=== PATIENT | female | born 1985 | race Caucasian/White ===

== ENCOUNTER 2016-12-09 16:57 | Emergency (ER) | payer MEDICAID, OTHER ==
[2016-12-09 19:46] LABS: APPEARANCE,URINE CLEAR; BILIRUBIN,URINE NEGATIVE (NEGATIVE); GLUCOSE, URINE NEGATIVE (NEGATIVE); KETONES,URINE TRACE mg/dL (NEGATIVE); LEUKOCYTE ESTERASE,URINE NEGATIVE (NEGATIVE); NITRITE,URINE NEGATIVE (NEGATIVE); PROTEIN,URINE NEGATIVE (NEGATIVE); URINE SPECIFIC GRAVITY 1.011; UROBILINOGEN,URINE NEGATIVE mg/dL (<2.0)
[2016-12-09] MEDS ORDERED: CEFTRIAXONE INJ 250 MG VIAL IM ONE (21:23)
[2016-12-09] MEDS ORDERED: AZITHROMYCIN 1 GM SUSP PACKET PO ONE (21:23)
[2016-12-09] MEDS ORDERED: LEVONORGESTREL 1.5 MG TABLET (1 TAB/ER-USE) PO ONE (21:24)
[2016-12-09] MEDS ORDERED: PROMETHAZINE HCL 25 MG TABLET PO ONE (21:24)
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
[2016-12-09] MEDS ORDERED: LIDOCAINE 1% INJ-PF (10 MG/ML) 30 ML SDV ONE (21:49)
[2016-12-09 22:03] LABS: ADD HIVPANEL? NO; HIV (1 AND 2) ANTIBODY NEGATIVE (NEGATIVE)
[2016-12-09 22:04] VITALS: BP 110/70
[2016-12-10 00:08] LABS: CHLAM PCR NOT DETECTED (NOT DETECT)
== END 2016-12-09 22:02 | disposition home or self-care (01) ==
LOC: ER 16:57
DX: T76.21XA Adult sexual abuse, suspected, initial encounter (principal); R10.2 Pelvic and perineal pain; Z32.01 Encounter for pregnancy test, result positive; F17.200 Nicotine dependence, unspecified, uncomplicated; F41.9 Anxiety disorder, unspecified; Z88.0 Allergy status to penicillin
CPT/HCPCS: 99285; 96372; 36415; 87210; 81025; 81001; 86701; 87491; 87591; 80074; Q0144; J0696

== ENCOUNTER 2017-05-23 14:23 | Emergency (ER) | payer MEDICAID ==
[2017-05-23 14:35] VITALS: BP 112/67
[2017-05-23] MEDS ORDERED: LIDOCAINE 1% INJ-PF (10 MG/ML) 30 ML SDV INJ ONE (14:48)
--- NOTE | 2017-05-23 14:50 | ER Document Report ---
HPI - HPI Pain Level: 4 Notes: Patient is a 32-year-old female presented to the ED complaining of an abscess to her left wrist 3 days. 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 Patient was seen in urgent care on Tuesday and received Bactrim DS without incision and drainage. Patient states that she is 27 weeks . Patient admits to smoking but denies any other drug use. Patient is allergic to penicillins-- rash. Patient takes gabapentin Zoloft and Latuda daily. No other significant past medical history. Her PCM is Dr. Benton. The pain does not radiate. Denies any fever, headache, URI, sore throat, chest pain, palpitations, syncope , cough, wheeze, shortness of breath, abdominal pain, nausea/vomiting/diarrhea, dysuria. Denies any recent illness, travel, sick contacts. - ROS Notes: REVIEW OF SYSTEMS: CONSTITUTIONAL : Denies fever, chills, or sweats. Denies recent illness. EENT: Denies eye, ear, throat, or mouth pain or symptoms. Denies nasal or sinus congestion or discharge. Denies throat, tongue, or mouth swelling or difficulty swallowing. CARDIOVASCULAR: Denies chest pain. Denies palpitations or racing or irregular heart beat. Denies ankle edema. RESPIRATORY: Denies cough, cold, or chest congestion. Denies shortness of breath, difficulty breathing, or wheezing. GASTROINTESTINAL: Denies abdominal pain or distention. Denies nausea, vomiting , or diarrhea. Denies blood in vomitus, stools, or per rectum. Denies black, tarry stools. Denies constipation. GENITOURINARY: Denies difficulty urinating, painful urination, burning, frequency, blood in urine, or discharge. MUSCULOSKELETAL: see hpi SKIN: see hpi NEUROLOGICAL: Denies confusion or altered mental status. Denies passing out or loss of consciousness. Denies dizziness or lightheadedness. Denies headache. Denies weakness or paralysis or loss of use of either side. Denies problems with gait or speech. Denies sensory loss, numbness, or tingling. Denies seizures. PSYCHIATRIC: Denies anxiety or stress. Denies depression, suicidal ideation, or homicidal ideation. ALL OTHER SYSTEMS REVIEWED AND NEGATIVE. Dictation was performed using [employer] voice recognition software - REPRODUCTIVE Reproductive: DENIES: : - DERM Skin Color: Normal Past Medical History - Social History Smoking Status: Current Every Day Smoker Family History: Reviewed & Not Pertinent Patient has suicidal ideation: No Patient has homicidal ideation: No Pulmonary Medical History: Reports: Hx Bronchitis Renal/ Medical History: Denies: Hx Peritoneal Dialysis Psychiatric Medical History: Reports: Hx Anxiety - Immunizations Hx Diphtheria, Pertussis, Tetanus Vaccination: No Vertical Provider Document - CONSTITUTIONAL Agree With Documented VS: Yes Notes: PHYSICAL EXAMINATION: GENERAL: Well-appearing, well-nourished and in no acute distress. LUNGS: Breath sounds clear to auscultation bilaterally and equal. No wheezes rales or rhonchi. HEART: Regular rate and rhythm without murmurs, rubs, gallops. Musculoskeletal: Lt wrist: FROM to passive/active. Strength 5+/5. Radial pulse 2+. No bony tenderness. sensation intact distal. Extremities: No cyanosis, clubbing, or edema b/l. Peripheral pulses 2+. Capillary refill less than 3 seconds. NEUROLOGICAL: Normal sensory, motor exams PSYCH: Normal mood, normal affect. SKIN: Erythema/abscess noted to left lateral wrist approx 2.5cm with fluid pocket. Minimal induration surrounding. No discharge. No streaking. - INFECTION CONTROL TRAVEL OUTSIDE OF THE [place] IN LAST 30 DAYS: No - RESPIRATORY O2 Sat by Pulse Oximetry: 100 Course - Re-evaluation Re-evalutation: 05/23/17 15:35 Patient is an afebrile, well-hydrated, 32-year-old female presents the ED with a left wrist abscess, suspect MRSA based on patient's H&P vitals are stable. PE otherwise unremarkable. Patient is neurovascularly intact distal. Incision and drainage performed a left lateral wrist successfully with packing without complication. Patient is already on Bactrim DS twice a day which is a Preg Cat D*. We will stop this immediately. Risks/benefits reviewed with the patient. Called the pharmacy who gave some suggestions regarding vancomycin, Linezolid. Called [facility] OPERATOR Dr. Bowman to get a recommendation. She recommends clindamycin PO (no preg cat during look up on utd), and she states that they use this for infections in women without concern. We will place her on 300mg QID x10 days. Conservative measures otherwise for symptoms. Wound instructions reviewed. Recheck with your PCM in 2-3 days. Return to the ED with any worsening/concerning symptoms otherwise as reviewed in discharge. Patient is in agreement. - Vital Signs Vital signs: Temp Pulse Resp BP Pulse Ox 98.5 F 97 16 112/67 100 05/23/17 14:33 05/23/17 14:33 05/23/17 14:33 05/23/17 14:33 05/23/17 14:33 Procedures - Incision and Drainage Left Wrist Time completed: 15:15 Type: Simple Anesthetic type: 1% Lidocaine mL's of anesthetic: 6 Blade size: 11 I&D procedure: Shurclens applied, Iodoform packing placed, Sterile dressing applied Incision Method: Incision made by scalpel Amount/type of drainage: Purulent/bloody 6cc Discharge - Discharge Clinical Impression: Abscess Condition: Stable Disposition: HOME, SELF-CARE Instructions: Abscess ([facility]), MRSA Cellulitis ([facility]), Post Incision and Drainage , Clindamycin ([facility]) Additional Instructions: Do not shower or bathe for 24 hours. After 24 hours she may shower but no submersion of the wound under water. Keep the original dressing on the wound for 24 hours unless the drainage stops through. Change the dressing daily thereafter and use a small amount of triple antibiotic ointment over the open wound. Return to the ED and/or your PCM in 2-3 days for recheck and continue direction for wound packing. Monitor for any signs of worsening pain or redness , red streaks, and/or fever. Return to the ED if noticing any of the above symptoms or as needed for any other concerning symptoms. Take medications as directed. Prescriptions: Clindamycin HCl [Cleocin 300 mg Capsule] 300 mg PO QID #40 capsule Forms: Smoking Cessation Education Referrals: KORTNEY CASTANEDA MD [ACTIVE STAFF] - Follow up as needed [facility] [Provider Group] - Follow up in 3-5 days
== END 2017-05-23 15:55 | disposition home or self-care (01) ==
LOC: ER 14:23
PROC: 0H9EXZZ Drainage of Left Lower Arm Skin, External Approach (ICD-10-PCS; principal; 2017-05-23)
DX: O26.92 Pregnancy related conditions, unspecified, second trimester (principal); L02.414 Cutaneous abscess of left upper limb; O99.332 Smoking (tobacco) complicating pregnancy, second trimester; Z3A.27 27 weeks gestation of pregnancy
CPT/HCPCS: 99283; 87070; 87205; 87077; 10060; J3490; 87075; A6266

== ENCOUNTER 2017-06-27 10:15 | Outpatient (CLI) | payer MEDICAID ==
[2017-06-27 12:23] LABS: APPEARANCE,URINE CLEAR; BILIRUBIN,URINE NEGATIVE (NEGATIVE); GLUCOSE, URINE NEGATIVE (NEGATIVE); KETONES,URINE NEGATIVE (NEGATIVE); LEUKOCYTE ESTERASE,URINE NEGATIVE (NEGATIVE); NITRITE,URINE NEGATIVE (NEGATIVE); PROTEIN,URINE NEGATIVE (NEGATIVE); URINE SPECIFIC GRAVITY 1.004; UROBILINOGEN,URINE NEGATIVE mg/dL (<2.0)
[2017-06-27 12:54] LABS: URINE BARBITURATES SCREEN NEGATIVE; URINE METHADONE SCREEN NEGATIVE; URINE PHENCYCLIDINE SCREEN NEGATIVE
[2017-06-27 13:03] LABS: URINE OPIATES LOW UNCONFIRMED POSITIVE
--- NOTE | 2017-06-27 13:26 | RADIOLOGY REPORT (SQ) ---
EXAM DESCRIPTION: U/S PROFILE W/O STRESS COMPLETED DATE/TIME: 06/27/2017 1:02 pm REASON FOR STUDY: Nonreactive NST COMPARISON: None. TECHNIQUE: Limited hussein-scale realtime and static images of the fetus to measure specified parameter s. LIMITATIONS: None. FINDINGS: HEART RATE: 126 beats per minute. MARIANN: 9.5 cm. POSTURE AND TONE: 2 points. MOVEMENT: 0 points. BREATHING MOVEMENT: 2 points. QUALITATIVE MARIANN: 2 points. OTHER: No other significant finding. IMPRESSION: BIOPHYSICAL PROFILE: 04/14. No breathing movement was identified Trimester of : Third - 28 weeks to delivery COMMENT: BREATHING MOVEMENTS: 2 POINTS: PRESENT 0 POINTS: ABSENT MOTION: 2 POINTS: PRESENT 0 POINTS: ABSENT TONE: 2 POINTS: PRESENT 0 POINTS: ABSENT AMNIOTIC FLUID VOLUME: 2 POINTS: LARGEST POCKET GREATER THAN 2 CM DEPTH. 0 POINTS: NO POCKET OF 2 CM. TECHNICAL DOCUMENTATION: JOB ID: [id number] [facility]- All Rights Reserved
--- NOTE | 2017-06-27 14:58 | Non Stress Test Report ---
Non Stress Test Datetime Report Generated by CPN: 06/27/2017 14:58 DEMOGRAPHIC Test Number: 1 EGA NST: 34.6 INDICATION Indication for Study: Ordered by Provider MONITORING Monitor Explained: Monitor Explained; Test Explained; Patient Verbalized Understanding Time on Monitor: 06/27/2017 10:33 Time off Monitor: 06/27/2017 14:05 NST Duration: 212 NST INTERVENTIONS NST Interventions: PO Hydration; IV Fluids; Reposition Patient; For Biophysical Profile NST Interventions Other: Popsicle Physician Notified NST: Morillo BABY A: [id number] BABY A Movement : Present Contraction Frequency : 0 FHR Baseline : 120 Accelerations : 10X10 Decelerations : None Variability : Moderate 6-25bpm NST Review: Meets Criteria for Reactive NST NST Review and Verified By : Boris Gracia RN NST Results: Non-Reactive NST COMMENTS NST Comments: Pt went for BPP, 6/8 results. Will repeat within [address] Morillo. NST REPORT Report Trigger: Send Report
[2017-07-07 14:54] LABS: BENZODIAZEPINE CONFIRMATION UR Negative (Cutoff=300)
[2017-07-07 15:01] LABS: OPIATE CONFIRMATION Positive (.)
== END 2017-06-27 15:01 | disposition home or self-care (01) ==
LOC: LC 10:15
PROVIDERS: ATTEND Obstetrics & Gynecology
PROC: 4A1HXCZ Monitoring of Products of Conception, Cardiac Rate, External Approach (ICD-10-PCS; principal; 2017-06-27)
DX: Z34.93 Encounter for supervision of normal pregnancy, unspecified, third trimester (principal); Z36 Encounter for antenatal screening of mother; Z3A.34 34 weeks gestation of pregnancy
CPT/HCPCS: 59025; 81001; 80307; 76819; G0480 ×2; G6056; 80361

== ENCOUNTER 2017-06-28 10:33 | Emergency (ER) | payer MEDICAID ==
[2017-06-28 10:51] VITALS: BP 113/70
[2017-06-28] MEDS ORDERED: CLINDAMYCIN PHOSPHATE INJ 300 MG/2 ML SDV IM ONE (11:11)
--- NOTE | 2017-06-28 12:12 | ER Document Report ---
HPI - HPI Patient complains to provider of: Right hand abscess Onset: Other - 5 days Onset/Duration: Persistent Quality of pain: Achy Pain Level: 4 Context: Patient presents complaining of right hand abscess for the past 5 days. Patient has been treating the lesion with warm compresses. Patient does admit to a history of IV drug use used drugs in a few weeks. Patient without any fever. Patient does have a history of MRSA. Patient is also currently Associated Symptoms: Other - Right hand abscess Exacerbated by: Movement Relieved by: Denies Similar symptoms previously: Yes Recently seen / treated by doctor: Yes - ROS ROS below otherwise negative: Yes Systems Reviewed and Negative: Yes All other systems reviewed and negative - CONSTITUTIONAL Constitutional: DENIES: Fever - REPRODUCTIVE Reproductive: DENIES: : - MUSCULOSKELETAL Musculoskeletal: REPORTS: Extremity pain, Swelling - DERM Skin Color: Erythema Notes: Abscess Past Medical History - General Information source: Patient - Social History Smoking Status: Current Some Day Smoker Chew tobacco use (# tins/day): No Frequency of alcohol use: None Drug Abuse: Other - IV heroin Lives with: Family Family History: Reviewed & Not Pertinent Patient has suicidal ideation: No Patient has homicidal ideation: No Pulmonary Medical History: Reports: Hx Bronchitis Renal/ Medical History: Denies: Hx Peritoneal Dialysis Psychiatric Medical History: Reports: Hx Anxiety, Hx Bipolar Disorder, Hx Depression Surgical Hx: Negative - Immunizations Hx Diphtheria, Pertussis, Tetanus Vaccination: No Vertical Provider Document - CONSTITUTIONAL Agree With Documented VS: Yes Exam Limitations: No Limitations General Appearance: WD/WN, No Apparent Distress - INFECTION CONTROL TRAVEL OUTSIDE OF THE [place] IN LAST 30 DAYS: No - HEENT HEENT: Atraumatic, Normocephalic - NECK Neck: Normal Inspection - RESPIRATORY Respiratory: Breath Sounds Normal, No Respiratory Distress O2 Sat by Pulse Oximetry: 96 - CARDIOVASCULAR Cardiovascular: Regular Rate, Regular Rhythm Pulses: Normal: Radial - BACK Back: Normal Inspection - MUSCULOSKELETAL/EXTREMETIES Musculoskeletal/Extremeties: MAEW, Tender - Right hand tenderness, Edema - 1+ swelling to dorsal aspect of right hand - NEURO Level of Consciousness: Awake, Alert, Appropriate Motor/Sensory: No Motor Deficit - DERM Integumentary: Warm, Abscess - Abscess to dorsal aspect over right hand with small amount of overlying erythema, no concern for flexor tenosynovitis Course - Vital Signs Vital signs: Temp Pulse Resp BP Pulse Ox 98.9 F 85 113/70 96 06/28/17 10:48 06/28/17 10:48 06/28/17 10:48 06/28/17 10:48 Procedures - Incision and Drainage Right Hand Type: Simple Anesthetic type: 1% Lidocaine Blade size: 11 I&D procedure: Betadine prep applied Incision Method: Incision made by scalpel Amount/type of drainage: Moderate amount of purulent drainage removed Hands back picture: 1 - Abscess to dorsal aspect of right hand Discharge - Discharge Clinical Impression: Hand abscess, IV drug user Condition: Stable Disposition: HOME, SELF-CARE Instructions: Abscess ([facility]), Acetaminophen, Clindamycin ([facility]), Post Incision and Drainage Additional Instructions: Return immediately for any new or worsening symptoms Followup with your primary care provider, call tomorrow to make a followup appointment Follow-up with hand specialist for any continued pain or problems Prescriptions: Clindamycin HCl [Cleocin Hcl] 300 mg PO QID #28 capsule Referrals: NANDO OLSON DO [Primary Care Provider] - Follow up as needed ELOINA DEL ROSARIO DO [ACTIVE STAFF] - Follow up as needed
== END 2017-06-28 12:50 | disposition home or self-care (01) ==
LOC: ER 10:33
PROC: 0H9FXZZ Drainage of Right Hand Skin, External Approach (ICD-10-PCS; principal; 2017-06-28)
DX: O99.719 Diseases of the skin and subcutaneous tissue complicating pregnancy, unspecified trimester (principal); L02.511 Cutaneous abscess of right hand; O99.320 Drug use complicating pregnancy, unspecified trimester; F11.10 Opioid abuse, uncomplicated; O99.330 Smoking (tobacco) complicating pregnancy, unspecified trimester; Z3A.00 Weeks of gestation of pregnancy not specified; Z86.14 Personal history of Methicillin resistant Staphylococcus aureus infection
CPT/HCPCS: 87070; 87075; 87077; 87205; 96372; 99283

== ENCOUNTER 2017-06-28 18:10 | Outpatient (CLI) | payer MEDICAID ==
[2017-06-28 19:31] LABS: APPEARANCE,URINE CLEAR; BILIRUBIN,URINE NEGATIVE (NEGATIVE); GLUCOSE, URINE NEGATIVE (NEGATIVE); KETONES,URINE NEGATIVE (NEGATIVE); LEUKOCYTE ESTERASE,URINE NEGATIVE (NEGATIVE); NITRITE,URINE NEGATIVE (NEGATIVE); PROTEIN,URINE NEGATIVE (NEGATIVE); URINE SPECIFIC GRAVITY 1.002; UROBILINOGEN,URINE NEGATIVE mg/dL (<2.0)
[2017-06-28 19:49] LABS: URINE BARBITURATES SCREEN NEGATIVE; URINE METHADONE SCREEN NEGATIVE; URINE PHENCYCLIDINE SCREEN NEGATIVE
[2017-06-28 20:05] LABS: URINE OPIATES LOW UNCONFIRMED POSITIVE
--- NOTE | 2017-06-28 21:53 | RADIOLOGY REPORT (SQ) ---
EXAM DESCRIPTION: U/S PROFILE W/O STRESS COMPLETED DATE/TIME: 06/28/2017 9:19 pm REASON FOR STUDY: Nonreactive NST COMPARISON: None. TECHNIQUE: Limited hussein-scale realtime and static images of the fetus to measure specified parameter s. LIMITATIONS: None. FINDINGS: HEART RATE: 155 beats per minute. MARIANN: 7.3 cm. POSTURE AND TONE: 2 points. MOVEMENT: 2 points. BREATHING MOVEMENT: 0 points QUALITATIVE MARIANN: 2 points. OTHER: No other significant finding. IMPRESSION: BIOPHYSICAL PROFILE: 04/14. Trimester of : Third - 28 weeks to delivery COMMENT: BREATHING MOVEMENTS: 2 POINTS: PRESENT 0 POINTS: ABSENT MOTION: 2 POINTS: PRESENT 0 POINTS: ABSENT TONE: 2 POINTS: PRESENT 0 POINTS: ABSENT AMNIOTIC FLUID VOLUME: 2 POINTS: LARGEST POCKET GREATER THAN 2 CM DEPTH. 0 POINTS: NO POCKET OF 2 CM. TECHNICAL DOCUMENTATION: JOB ID: [id number] [employer]- All Rights Reserved
--- NOTE | 2017-06-28 22:17 | Non Stress Test Report ---
Non Stress Test Datetime Report Generated by CPN: 06/28/2017 22:17 DEMOGRAPHIC EGA NST: 35.0 INDICATION Indication for Study: Ordered by Provider MONITORING Monitor Explained: Monitor Explained; Test Explained; Patient Verbalized Understanding Time on Monitor: 06/28/2017 18:30 Time off Monitor: 06/28/2017 21:59 NST Duration: 209 NST INTERVENTIONS NST Interventions: PO Hydration; Reposition Patient; For Biophysical Profile Physician Notified NST: Colby (Annotations: Data stored by [facility] on behalf of user) BABY A Movement : Present Contraction Frequency : occasional FHR Baseline : 125 Accelerations : 15X15 (Annotations: Data stored by [facility] on behalf of user) Decelerations : None Variability : Moderate 6-25bpm NST Review: Meets Criteria for Reactive NST NST Review and Verified By : ELMER Ferreira NST Results: Reactive NST REPORT Report Trigger: Send Report
== END 2017-06-28 22:16 | disposition home or self-care (01) ==
LOC: LC 18:10
PROVIDERS: ATTEND Obstetrics & Gynecology
PROC: 4A1HXCZ Monitoring of Products of Conception, Cardiac Rate, External Approach (ICD-10-PCS; principal; 2017-06-28)
DX: O47.03 False labor before 37 completed weeks of gestation, third trimester (principal); Z3A.35 35 weeks gestation of pregnancy
CPT/HCPCS: 59025; 76819; 80307; 81001

== ENCOUNTER 2017-07-07 14:19 | Outpatient (CLI) | payer MEDICAID | END 2017-07-07 15:38 | disposition home or self-care (01) | LOC: LC 14:19 | PROVIDERS: ATTEND Obstetrics & Gynecology | PROC: 4A1HXCZ Monitoring of Products of Conception, Cardiac Rate, External Approach (ICD-10-PCS; principal; 2017-07-07) | DX: Z34.93 Encounter for supervision of normal pregnancy, unspecified, third trimester (principal); Z36 Encounter for antenatal screening of mother; Z3A.36 36 weeks gestation of pregnancy | CPT/HCPCS: 59025 ==

== ENCOUNTER 2017-07-10 22:46 | Inpatient (IN) | payer MEDICAID ==
[2017-07-10] MEDS: IBUPROFEN 800 MG TABLET PO SCH (05:45)
--- NOTE | 2017-07-10 22:49 | Non Stress Test Report ---
Non Stress Test Datetime Report Generated by CPN: 07/10/2017 22:48 DEMOGRAPHIC Test Number: 1 EGA NST: 36.2 INDICATION Indication for Study: Ordered by Provider MONITORING Monitor Explained: Monitor Explained; Test Explained; Patient Verbalized Understanding Time on Monitor: 07/07/2017 15:11 Time off Monitor: 07/07/2017 15:36 NST Duration: 25 NST INTERVENTIONS NST Interventions: PO Hydration Physician Notified NST: H. Dennis, CNM BABY A: [id number] BABY A Movement : Present Contraction Frequency : 0 FHR Baseline : 120 Accelerations : 15X15 Decelerations : None Variability : Moderate 6-25bpm NST Review: Meets Criteria for Reactive NST NST Review and Verified By : ZENAIDA Dumas Results: Reactive NST REPORT Report Trigger: Send Report
[2017-07-10 23:30] LABS: AMNISURE (ROM) POSITIVE (NEGATIVE)
[2017-07-10 23:36] LABS: APPEARANCE,URINE CLEAR; BILIRUBIN,URINE NEGATIVE (NEGATIVE); GLUCOSE, URINE NEGATIVE (NEGATIVE); KETONES,URINE NEGATIVE (NEGATIVE); LEUKOCYTE ESTERASE,URINE NEGATIVE (NEGATIVE); NITRITE,URINE NEGATIVE (NEGATIVE); PROTEIN,URINE NEGATIVE (NEGATIVE); URINE SPECIFIC GRAVITY 1.004; UROBILINOGEN,URINE NEGATIVE mg/dL (<2.0)
[2017-07-10 23:51] LABS: URINE BARBITURATES SCREEN NEGATIVE; URINE METHADONE SCREEN NEGATIVE; URINE PHENCYCLIDINE SCREEN NEGATIVE
[2017-07-11 00:02] LABS: URINE OPIATES LOW UNCONFIRMED POSITIVE
[2017-07-11] MEDS ORDERED: RINGERS SOLUTION,LACTATED 1,000 ML IV PRN (00:02)
[2017-07-11 00:41] LABS: ABSOLUTE LYMPHOCYTES (AUTO) 2.1 10^3/uL (0.5-4.7); ABSOLUTE MONOCYTES (AUTO) 0.6 10^3/uL (0.1-1.4); ABSOLUTE NEUT (AUTO) 6.4 10^3/uL (1.7-8.2); BASOPHILS % (AUTO) 0.4 % (0-2); EOSINOPHILS % (AUTO) 0.4 % (0-6); HEMATOCRIT 30.2 % (36.0-47.0); HEMOGLOBIN 10.2 g/dL (12.0-15.5); HGB HCT DIFFERENCE 0.4; LYMPHOCYTES % (AUTO) 22.7 % (13-45); MEAN CORPUSCULAR HEMOGLOBIN 28.9 pg (27.0-33.4); MEAN CORPUSCULAR HGB CONC 33.9 g/dL (32.0-36.0); MEAN CORPUSCULAR VOLUME 85 fl (80-97); MONOCYTES % (AUTO) 6.6 % (3-13); RED BLOOD COUNT 3.54 10^6/uL (3.72-5.28); RED CELL DISTRIBUTION WIDTH 14.5 % (11.5-14.0); SEGMENTED NEUTROPHILS % (AUTO) 69.9 % (42-78); WHITE BLOOD COUNT 9.1 10^3/uL (4.0-10.5)
[2017-07-11] MEDS ORDERED: MISOPROSTOL 0.1 MG TABLET ONE (01:12)
[2017-07-11] MEDS ORDERED: FENTANYL CITRATE INJ/PF 100 MCG/2 ML AMPUL ONE (02:29)
[2017-07-11] MEDS ORDERED: BUPIVACAINE HCL 0.25 % INJ/PF (2.5 MG/1 ML) 30 ML VIAL ONE (02:30)
[2017-07-11] MEDS ORDERED: FENTANYL/BUPIVACAINE/NS/PF 200 MCG/100 ML RTUINJ EPI ONE (02:30)
[2017-07-11] MEDS ORDERED: EPHEDRINE SULFATE INJ 50 MG/1 ML AMPULE ONE (02:30)
[2017-07-11] MEDS ORDERED: PHENYLEPHRINE HCL INJ/PF 10 MG/1 ML SDV ONE (02:30)
[2017-07-11] MEDS ORDERED: LIDOCAINE 1% INJ-PF (10 MG/ML) 30 ML SDV ONE (03:15)
[2017-07-11] MEDS ORDERED: MISOPROSTOL 0.2 MG TABLET ONE (03:15)
[2017-07-11] MEDS ORDERED: OXYTOCIN/NORMAL SALINE 20 UNIT/1,000 ML RTUINJ ONE ×2 (03:15→20:47)
[2017-07-11] MEDS ORDERED: NA PHOS,M-B/NA PHOS,DI-BA (ADULT) 133 ML ENEMA PR PRN (04:24)
[2017-07-11] MEDS ORDERED: DIPH/PERTUSS(ACELL)/TETANUS VAC/PF 0.5 ML SYR (>=10YO) IM PRN (04:24)
[2017-07-11] MEDS ORDERED: PROMETHAZINE HCL INJ 25 MG/1 ML VIAL IV PRN (04:24)
[2017-07-11] MEDS ORDERED: PSEUDOEPHEDRINE HCL 30 MG TABLET PO PRN (04:24)
[2017-07-11] MEDS ORDERED: PROMETHAZINE HCL 25 MG SUPP.RECT PR PRN (04:24)
[2017-07-11] MEDS ORDERED: ACETAMINOPHEN 650 MG SUPP.RECT PR PRN (04:24)
[2017-07-11] MEDS ORDERED: GLYCERIN/WITCH HAZEL LEAF 1 EACH MED..PAD TP PRN (04:24)
[2017-07-11] MEDS ORDERED: PROMETHAZINE HCL 25 MG TABLET PO PRN (04:24)
[2017-07-11] MEDS ORDERED: MEASLES,MUMPS&RUBELLA VACC/PF 0.5 ML VIAL SUBCUT PRN (04:24)
[2017-07-11] MEDS ORDERED: DIBUCAINE 1% OINTMENT 28 GM TP PRN (04:24)
[2017-07-11] MEDS ORDERED: MAGNESIUM HYDROXIDE SUSP 30 ML UDCUP PO PRN (04:24)
[2017-07-11] MEDS ORDERED: BENZOCAINE/MENTHOL AEROSOL SPRAY 56 ML TOP PRN (04:24)
[2017-07-11] MEDS ORDERED: DIPHENHYDRAMINE HCL 25 MG CAPSULE PO PRN (04:24)
[2017-07-11] MEDS ORDERED: OXYTOCIN/NORMAL SALINE 20 UNIT/1,000 ML RTUINJ IV PRN (04:24)
[2017-07-11] MEDS ORDERED: ZOLPIDEM TARTRATE 5 MG TABLET PO PRN (04:24)
[2017-07-11] MEDS ORDERED: IBUPROFEN 800 MG TABLET ONE (04:39)
--- NOTE | 2017-07-11 05:21 | Delivery Summary ---
Del Sum A-C Datetime Report Generated by CPN: 07/11/2017 05:20 DELIVERY PERSONNEL DELIVERY PERSONNEL: [id number] Delivery Doctor:: Carrington Chamberlain, DO Labor and Delivery Nurse:: Elsie Casas RN Nursery Nurse:: Cheryl Cole RN Subassembly Supervisor/ASSOCIATE PROFESSOR OF PSYCHOLOGY: Veronika Semar, PROOF READER MATERNAL INFORMATION Delivery Anesthesia: Epidural Medications After Delivery: Pitocin Bolus-Please Comment; Pitocin Drip 20 Units/1000ml NSS Meds After Delivery Comment: ns with pitocin 20 units liter ivf Estimated Blood Loss (ml): 200 Maternal Complications: Other Other Maternal Complications: on subutex, positive opiates and benzos Provider Comments: of viable male in BALTAZAR position Placenta deleiverd spontaneous and intact with 3v cord Fundus firm LABOR SUMMARY EDC: 08/02/2017 00:00 No. Babies in Womb: 1 Attempted: No Labor Anesthesia: Epidural LABOR INFORMATION Reason for Induction: Not Applicable Onset of Labor: 07/10/2017 21:30 Complete Dilatation: 07/11/2017 03:28 Cervical Ripening Agents: Cytotec @ Oxytocin: N/A Group B Beta Strep: Negative Antibiotics # of Doses: 0 Steroids Given: None Reason Steroids Not Administered: Not Applicable MEMBRANES Membranes Rupture Method: Spontaneous Rupture of Membranes: 07/10/2017 21:30 Length of Rupture (hr): 6.38 Amniotic Fluid Color: Clear Amniotic Fluid Amount: Small Amniotic Fluid Odor: Normal STAGES OF LABOR Stage 1 hr: 5 Stage 1 min: 58 Stage 2 hr: 0 Stage 2 min: 25 Stage 3 hr: 0 Stage 3 min: 4 Total Time in Labor hr: 6 Total Time in Labor min: 27 VAGINAL DELIVERY Episiotomy: None Laceration Extension: N/A Laceration Type: None Laceration Repair: Not Applicable Sponge Count Correct: N/A Sharps Count Correct: N/A CSECTION DELIVERY Primary Indication: N/A Secondary Indication: N/A CSection Incidence: N/A Labor: N/A Elective: N/A CSection Incision: N/A BABY A INFORMATION Infant Delivery Date/Time: 07/11/2017 03:53 Method of Delivery: Vaginal Born in Route : No : N/A Forceps: N/A Vacuum Extraction: N/A Shoulder Dystocia : No PRESENTATION/POSITION BABY A Presentation: Cephalic Cephalic Presentation: Vertex Vertex Position: Left Occipital Anterior Breech Presentation: N/A PLACENTA INFORMATION BABY A Placenta Delivery Time : 07/11/2017 03:57 Placenta Method of Delivery: Spontaneous Placenta Status: Delivered SCORES BABY A Heart Rate 1 min: >100 bpm Resp Effort 1 min: Good Cry Reflex Irritability 1 min: Cough or Sneeze or Pulls Away Muscle Tone 1 min: Active Motion Color 1 min: Blue/Pale Resuscitation Effort 1 min: Tactile Stimulation SCORE 1 MIN: 8 Heart Rate 5 min: >100 bpm Resp Effort 5 min: Good Cry Reflex Irritability 5 min: Cough or Sneeze or Pulls Away Muscle Tone 5 min: Active Motion Color 5 min: Body [place], Extremities Blue Resuscitation Effort 5 min: Tactile Stimulation SCORE 5 MIN: 9 INFORMATION BABY A Gestational Age at Delivery: 36.6 Gestational Status: Late - 34- 36.6 Weeks Infant Outcome : Liveborn Condition : Stable Sex: Male IDENTIFICATION BABY A Infant Verification Date/Time: 07/11/2017 04:03 ID Band Number: [id number] Mother's Name Verified: Yes RN Verifying : S. Lattibeaudeir, RN _ C. Heath, RN WEIGHT/LENGTH BABY A Birthweight (gm): 2580 Infant Weight (lb): 5 Weight (oz): 11 Infant Length (in): 18.00 Length (cm): 45.72 CORD INFORMATION BABY A No. Cord Vessels: 3 Nuchal Cord : N/A Cord Blood Taken: Yes-For Eval (Mom's Blood Type - or O+) Infant Suction: Mouth; Nose ASSESSMENT BABY A Infant Complications: Other Complications- Other: Maternal hx of heroin and opiate abuse. Currently taking subutex. Respirations: Appears Normal Skin to Skin: No Skin to Skin Time (min): 0 Director Of Logistics/ALS Called : No Infant Care By: Noelle Cole RN Transferred To: Remains with Mother BABY B INFORMATION : N/A SIGNATURES Signature: with User ID: Bert
[2017-07-11] MEDS ORDERED: GABAPENTIN 300 MG CAPSULE PO SCH (05:45)
--- NOTE | 2017-07-11 05:59 | Admission Physical ---
Datetime Report Generated by CPN: 07/11/2017 05:59 CURRENT ADMISSION Chief Complaint: Suspected Ruptured Membranes Indication for Induction: Not Applicable Admit Plan: Admit to Unit; Initiate Labor Protocol ALLERGIES Medication Allergies: Yes Medication Allergies: penicillin V (07/10/2017) Medication Allergies: penicillin V (07/07/2017) Medication Allergies: penicillin V (06/28/2017) Medication Allergies: penicillin V (05/23/2017) Medication Allergies: penicillin V (03/25/2013) Latex: No Latex Allergies Food Allergies: none Environmental Allergies: none OBSTETRICAL HISTORY EDC: 08/02/2017 00:00 : 4 Para: 3 Term: 3 : 0 SAB: 0 IAB: 0 Ectopic: 0 Livin Cesareans: 0 VBACs: 0 Multiple Births: 0 Gestational Diabetes: No Rh Sensitization: No Incompetent Cervix: No SAYRA: No Infertility: No ART Treatment: No Uterine Anomaly: No IUGR: No Hx Previous C/S: No Macrosomia: No Hx Loss/Stillborn: No PIH: No Hx : No Placenta Previa/Abruption: No Depression/PP Depression: Yes PTL/PROM: No Post Hemorrhage: No Current Procedures: Ultrasound; NST Obstetrical History Comments: G1-08/2007- @ 41wks 7lbs 8 oz female G2- @ 40 wks 7lbs 6oz female G3-04/2012- @ 40 wks 7lbs 13oz male G4-Current + screening for Trisomy 18 Obstetrical History Comments: G1: 2006 G2: 2009 G3: 2011 G4: Current SEE RECORDS Alcohol: Yes Marijuana : No Cocaine: No Other Illicit Drugs: Yes Illicit Drug Comments: Jaimee during , has been on subtex since 05/23 Cigarettes: Current Everyday Smoker. [id number] Cigarette Frequency: > 10 per day Cigarette Comments: /2-1 ppd MEDICAL HISTORY Diabetes: No Blood Transfusion: No Pulmonary Disease (Asthma, TB): No Breast Disease: No Hypertension: No Supervisor [employer] Finishing Surgery: No Heart Disease: No Hosp/Surgery: No Autoimmune Disorder: No Anesthetic Complications: No Kidney Disease: No Abnormal Pap Smear: No Neuro/Epilepsy: Yes Psychiatric Disorders: Yes Other Medical Diseases: No Hepatitis/Liver Disease: No Significant Family History: No Varicosities/Phlebitis: No Trauma/Violence : No Thyroid Dysfunction: No Medical History Comments: Anemia, sciatica, opiate dependence, panic disorder and bipolar, on subutex, Hx seizures Dec, Jan, and February after coming off of Xanax. Smoker, hx of positive drug screening for amphetamines, cocaine, other street drugs. Was caught selling subutex and must now be watched when taking it. Fibromyalgia; Hx heroin use with fresh markings noted by provider, INFECTIOUS HISTORY Gonorrhea: No Genital Herpes: No Chlamydia: No Tuberculosis: No Syphilis: No Hepatitis: No HIV/AIDS Exposure: No Rash or Viral Illness: No HPV: No PHYSICAL EXAM General: Normal HEENT: Normal Neurologic: Normal Thyroid: Deferred Heart: Normal Lungs: Normal Breast: Deferred Back: Normal Abdomen: Normal Genitourinary Exam: Normal Extremities: Normal DTRs: Normal Pelvic Type: Adequate Vital Signs: Reviewed; Within Normal Limits VAGINAL EXAM Dilatation: 2 Effacement: 50 Station: -1 MEMBRANES Membranes: Ruptured Amniotic Fluid Color: Clear FETUS A EGA: 36.6 Monitoring: External US FHR- Baseline: 140 Variability: Moderate 6-25bpm Accelerations: 15X15 Decelerations: None FHR Category: Category I Presentation: Vertex PLANS FOR LABOR AND DELIVERY Labor and Delivery: None Pain Management: Epidural Feeding Preference: Breast Benefit of Breast Feed Discussed: Yes Circumcision: Yes INFORMED CONSENT Signature: with User ID: Bert
[2017-07-11] MEDS: SENNOSIDES/DOCUSATE 8.6-50 MG 1 EACH TABLET PO SCH (09:59)
[2017-07-11] MEDS: PRENATAL VITAMIN W-O CA NO5/FE FUMARATE/FA CAPSULE PO SCH (09:59)
[2017-07-11] MEDS: FERROUS SULFATE 325 MG TABLET PO SCH ×2 (09:59→17:22)
[2017-07-11] MEDS: DOCUSATE SODIUM 100 MG CAPSULE PO SCH ×2 (09:59→17:22)
[2017-07-11] MEDS: LURASIDONE HCL 40 MG TABLET PO SCH (10:01)
[2017-07-11] MEDS: FAMOTIDINE 20 MG TABLET PO SCH ×2 (10:01→21:15)
[2017-07-11] MEDS ORDERED: ACETAMINOPHEN WITH CODEINE #3 TABLET PO PRN (10:23)
[2017-07-11] MEDS: ACETAMINOPHEN WITH CODEINE #3 TABLET PO PRN ×3 (10:36→21:14)
[2017-07-11] MEDS: GABAPENTIN 300 MG CAPSULE PO SCH ×2 (11:01→17:22)
[2017-07-11] MEDS: IBUPROFEN 800 MG TABLET PO SCH ×2 (14:28→21:14)
[2017-07-11] MEDS ORDERED: METHYLERGONOVINE MALEATE INJ/PF 0.2 MG/1 ML AMPULE ONE (20:48)
[2017-07-11] MEDS ORDERED: METHYLERGONOVINE MALEATE 0.2 MG TABLET ONE (20:50)
[2017-07-11] MEDS: SERTRALINE HCL 50 MG TABLET PO SCH (21:14)
[2017-07-12] MEDS: GABAPENTIN 300 MG CAPSULE PO SCH ×4 (00:08→18:09)
[2017-07-12] MEDS: IBUPROFEN 800 MG TABLET PO SCH ×3 (05:41→21:09)
[2017-07-12 07:21] LABS: HEMOGLOBIN 10.2 g/dL (12.0-15.5); HGB HCT DIFFERENCE -0.4; MEAN CORPUSCULAR HEMOGLOBIN 28.4 pg (27.0-33.4); MEAN CORPUSCULAR HGB CONC 32.8 g/dL (32.0-36.0); MEAN CORPUSCULAR VOLUME 86 fl (80-97); RED BLOOD COUNT 3.59 10^6/uL (3.72-5.28); RED CELL DISTRIBUTION WIDTH 15.1 % (11.5-14.0); WHITE BLOOD COUNT 10.7 10^3/uL (4.0-10.5)
[2017-07-12] MEDS: SENNOSIDES/DOCUSATE 8.6-50 MG 1 EACH TABLET PO SCH (09:14)
[2017-07-12] MEDS: PRENATAL VITAMIN W-O CA NO5/FE FUMARATE/FA CAPSULE PO SCH (09:14)
[2017-07-12] MEDS: FERROUS SULFATE 325 MG TABLET PO SCH ×2 (09:14→18:09)
[2017-07-12] MEDS: DOCUSATE SODIUM 100 MG CAPSULE PO SCH ×2 (09:14→18:09)
[2017-07-12] MEDS: FAMOTIDINE 20 MG TABLET PO SCH ×2 (09:15→21:09)
[2017-07-12] MEDS: ACETAMINOPHEN WITH CODEINE #3 TABLET PO PRN ×3 (09:15→22:11)
[2017-07-12] MEDS: LURASIDONE HCL 40 MG TABLET PO SCH (09:16)
--- NOTE | 2017-07-12 11:01 | PDOC PROGRESS REPORT ---
Subjective-OB Subjective: Post Delivery Day:1 32 year old G4 now P4 s/p ppd1. Ambulating and voiding without difficulty. Denies any needs at this time Physical Exam (OB) Vital Signs: Temp Pulse Resp BP Pulse Ox 98.0 F 53 L 16 131/85 H 99 07/12/17 07:25 07/12/17 07:25 07/12/17 07:25 07/12/17 07:25 07/11/17 19:49 Intake & Output 07/11/17 07/12/17 07/13/17 06:59 06:59 06:59 Weight 70.216 kg - General General Appearance: Appears well In distress: None - PIH/Pre-Eclampsia Clonus: Negative Headache: Absent Epigastric Pain: No Visual Changes: No - Episiotomy/Laceration Site Condition: N/A - Lochia Lochia Amount: Scant < 10 ml Lochia Color: Rubra/Red - Abdomen Description: Soft Hernia Present: No Fundal Description: Firm, Midline Fundal Height: u/u - u/2 - Respiratory Respiratory Status: No respiratory distress Chest Status: Nontender - Neurological Cognition: Normal Orientation: AAOx4 - Psychological Associated symptoms: Normal affect, Normal mood Objective-Diagnostic Laboratory: 07/12/17 06:57 07/12/17 06:57 WBC 10.7 H RBC 3.59 L Hgb 10.2 L Hct 31.0 L MCV 86 MCH 28.4 MCHC 32.8 RDW 15.1 H Plt Count 276 Assessment and Plan(PN) - Assessment and Plan (1) Vaginal delivery Is this a current diagnosis for this admission?: Yes Plan: routine pp care (2) labor in second trimester with delivery in third trimester Qualifiers: Fetus number: single or unspecified fetus Qualified Code(s): O60.13X0 - labor second trimester with delivery third trimester, not applicable or unspecified Is this a current diagnosis for this admission?: Yes Plan: delivered. Routine pp care (3) Anemia affecting Qualifiers: Trimester: unspecified trimester Qualified Code(s): O99.019 - Anemia complicating , unspecified trimester Is this a current diagnosis for this admission?: Yes Plan: increase iron in diet and po feso4. (4) Drug abuse Is this a current diagnosis for this admission?: Yes Plan: continue present care upon discharge - Time Spent with Patient Time with patient: Less than 15 minutes Smoking Education Provided: Over 3 minutes Medications reviewed and adjusted accordingly: Yes - Disposition Anticipated Discharge: Home Within: within 24 hours
[2017-07-12] MEDS: SERTRALINE HCL 50 MG TABLET PO SCH (21:09)
[2017-07-13] MEDS: GABAPENTIN 300 MG CAPSULE PO SCH ×3 (01:15→12:04)
[2017-07-13] MEDS: IBUPROFEN 800 MG TABLET PO SCH (06:02)
[2017-07-13] MEDS: ACETAMINOPHEN WITH CODEINE #3 TABLET PO PRN ×2 (06:04→12:03)
[2017-07-13 08:42] VITALS: BP 131/87
[2017-07-13] MEDS: LURASIDONE HCL 40 MG TABLET PO SCH (09:09)
[2017-07-13] MEDS: FAMOTIDINE 20 MG TABLET PO SCH (09:10)
[2017-07-13] MEDS: PRENATAL VITAMIN W-O CA NO5/FE FUMARATE/FA CAPSULE PO SCH (09:10)
[2017-07-13] MEDS: DOCUSATE SODIUM 100 MG CAPSULE PO SCH (09:10)
[2017-07-13] MEDS: SENNOSIDES/DOCUSATE 8.6-50 MG 1 EACH TABLET PO SCH (09:10)
[2017-07-13] MEDS: FERROUS SULFATE 325 MG TABLET PO SCH (09:10)
--- NOTE | 2017-07-13 10:55 | PDOC DISCHARGE SUMMARY ---
Final Diagnosis Discharge Date: 07/13/17 - Final Diagnosis (1) Anemia affecting Is this a current diagnosis for this admission?: Yes (2) Drug abuse Is this a current diagnosis for this admission?: Yes (3) Vaginal delivery Is this a current diagnosis for this admission?: Yes Discharge Data - Discharge Medication Home Medications: Gabapentin 600 mg PO QID 07/24/16 Sertraline HCl [Zoloft 50 mg Tablet] 100 mg PO QHS 07/24/16 Buprenorphine HCl [Subutex 8 mg Sublingual Tablet] 1 tab SL BID 05/23/17 Lurasidone HCl [Latuda] 80 mg PO DAILY 05/23/17 Pnv with Ca,No.72/Iron/FA [Pnv Plus Multivit Tab] 1 tab PO DAILY Promethazine HCl [Phenergan 25 mg Tablet] 1 tab PO PRN PRN 07/10/17 Trazodone HCl 50 mg PO PRN PRN 07/10/17 Ferrous Sulfate [Feosol 325 mg Tablet] 325 mg PO BID tablet 07/13/17 Reason(s) for Admission: Onset of Labor Intrapartum Procedure(s): Spontaneous Vaginal Delivery - Diagnosis Test Laboratory: Temp Pulse Resp BP Pulse Ox 98.0 F 65 15 131/87 H 98 07/13/17 08:14 07/13/17 08:14 07/13/17 08:14 07/13/17 08:14 07/13/17 08:14 07/10/17 07/11/17 07/12/17 22:55 00:20 06:57 RBC 3.54 L 3.59 L Hgb 10.2 L 10.2 L Hct 30.2 L 31.0 L Urine Opiates Screen UNCONFIRMED POSITIVE - Discharge information/Instructions Discharge Activity: Activity As Tolerated Discharge Diet: Regular Disposition: HOME, SELF-CARE Follow up with: [facility] in: 2 - seen by management planner will follow up at clinic for subutex
[2017-07-16 08:20] LABS: BENZODIAZEPINE CONFIRMATION UR Positive (.); OPIATE CONFIRMATION Positive (.)
== END 2017-07-13 15:05 | disposition home or self-care (01) | DRG 775 ==
LOC: LC 22:46 → LR 23:34 → 2S 07-11 05:54
PROVIDERS: ADMIT Obstetrics & Gynecology; ATTEND Obstetrics & Gynecology
PROC: 4A1HXCZ Monitoring of Products of Conception, Cardiac Rate, External Approach (ICD-10-PCS; 2017-07-10)
PROC: 10E0XZZ Delivery of Products of Conception, External Approach (ICD-10-PCS; principal; 2017-07-11)
PROC: 3E0234Z Introduction of Serum, Toxoid and Vaccine into Muscle, Percutaneous Approach (ICD-10-PCS; 2017-07-13)
DX: O60.14X0 Preterm labor third trimester with preterm delivery third trimester, not applicable or unspecified (principal); O99.324 Drug use complicating childbirth; F11.10 Opioid abuse, uncomplicated; F13.90 Sedative, hypnotic, or anxiolytic use, unspecified, uncomplicated; O99.02 Anemia complicating childbirth; D64.9 Anemia, unspecified; O99.334 Smoking (tobacco) complicating childbirth; F17.210 Nicotine dependence, cigarettes, uncomplicated; M79.7 Fibromyalgia; O99.344 Other mental disorders complicating childbirth; F31.9 Bipolar disorder, unspecified; O99.89 Other specified diseases and conditions complicating pregnancy, childbirth and the puerperium; F41.0 Panic disorder [episodic paroxysmal anxiety]; Z3A.36 36 weeks gestation of pregnancy; Z37.0 Single live birth; Z23 Encounter for immunization
CPT/HCPCS: 36415; 80307; 80361; 81005; 84112; 85025; 85027; 86592; 86850; 86900; 86901; 90715; 94760; G0480; G6056; J2370; J2590; J3010; J3490

== ENCOUNTER 2018-05-07 03:24 | Emergency (ER) | payer MEDICAID ==
[2018-05-07 03:31] VITALS: BP 143/90
[2018-05-07] MEDS ORDERED: BUPIVACAINE HCL 0.5 % INJ/PF 30 ML SDV INJ ONE (06:32)
[2018-05-07] MEDS ORDERED: CLINDAMYCIN HCL 150 MG CAPSULE PO ONE (06:32)
[2018-05-07] MEDS ORDERED: OXYCODONE-ACETAMINOPHEN 5-325 MG TABLET PO ONE (06:32)
--- NOTE | 2018-05-07 06:52 | ER Document Report ---
ED General - General Chief Complaint: Toothache Stated Complaint: TOOTH PAIN Time Seen by Provider: 05/07/18 06:26 Mode of Arrival: Ambulatory Information source: Patient Notes: Patient with c/o left upper dental pain x2 days. Denies any injury. Denies fevers. TRAVEL OUTSIDE OF THE [place] IN LAST 30 DAYS: No - Related Data Allergies/Adverse Reactions: penicillin V [Penicillin V] Allergy (Verified 07/10/17 23:55) Past Medical History - General Information source: Patient - Social History Smoking Status: Never Smoker Chew tobacco use (# tins/day): No Frequency of alcohol use: Rare Drug Abuse: None Lives with: Family Family History: Reviewed & Not Pertinent Patient has suicidal ideation: No Patient has homicidal ideation: No Pulmonary Medical History: Reports: Hx Bronchitis Renal/ Medical History: Denies: Hx Peritoneal Dialysis Psychiatric Medical History: Reports: Hx Anxiety Surgical Hx: Negative - Immunizations Hx Diphtheria, Pertussis, Tetanus Vaccination: No Review of Systems - Review of Systems Constitutional: No symptoms reported EENT: Dental problem Cardiovascular: No symptoms reported Respiratory: No symptoms reported Gastrointestinal: No symptoms reported Genitourinary: No symptoms reported Female Genitourinary: No symptoms reported Musculoskeletal: No symptoms reported Skin: No symptoms reported Hematologic/Lymphatic: No symptoms reported Neurological/Psychological: No symptoms reported Physical Exam - Vital signs Vitals: Temp Pulse Resp BP Pulse Ox 98.7 F 80 16 143/90 H 96 05/07/18 03:30 05/07/18 03:30 05/07/18 03:30 05/07/18 03:30 05/07/18 03:30 - Notes Notes: PHYSICAL EXAMINATION: GENERAL: Well-appearing, well-nourished and in no acute distress. HEAD: Atraumatic, normocephalic, mild facial swelling noted. EYES: Pupils equal round and reactive to light, extraocular movements intact, conjunctiva are normal. ENT: Nares patent, oropharynx clear without exudates. Moist mucous membranes. Redness noted to left upper jawline, no drainable abscess noted. NECK: Normal range of motion, supple without lymphadenopathy LUNGS: Breath sounds clear to auscultation bilaterally and equal. No wheezes rales or rhonchi. HEART: Regular rate and rhythm without murmurs Musculoskeletal: Normal range of motion, no pitting or edema. No cyanosis. NEUROLOGICAL: Cranial nerves grossly intact. Normal speech, normal gait. PSYCH: Normal mood, normal affect. SKIN: Warm, Dry, normal turgor, no rashes or lesions noted. Course - Re-evaluation Re-evalutation: Patient with left upper dental pain and probable dental infection. Dental block to left upper jaw performed with marcaine. Patient is PCN allergic. Will place on clindamycin and d/c home. - Vital Signs Vital signs: Temp Pulse Resp BP Pulse Ox 98.7 F 80 16 143/90 H 96 05/07/18 03:30 05/07/18 03:30 05/07/18 03:30 05/07/18 03:30 05/07/18 03:30 Procedures - Additional Procedures dental block Additional Procedures: Other - dental block left upper alveolar Discharge - Discharge Clinical Impression: Tooth ache Condition: Stable Disposition: HOME, SELF-CARE Additional Instructions: Dental Infection or Abscess You have an infection, perhaps an abscess (pus formation) of the gum around one of your teeth, which is probably decayed. If there is an abscess, it may drain on its own or it may need to be opened or lanced. Severe swelling or drainage around a tooth usually means a deep dental abscess which usually requires evaluation and treatment by a dentist or oral surgeon. Antibiotics may be prescribed while awaiting dental treatment. If you develop high fever with chills, worsening pain, or increasing swelling in the area, see a dentist or oral surgeon immediately or return to the Emergency Department immediately. Please take all medications as prescribed. Please follow-up with your dentist as discussed. I have also included information for the [facility] in case you need it. Return to the emergency department if your pain worsens, swelling of your face occurs or you develop a fever. Prescriptions: Clindamycin HCl 300 mg PO TID #21 capsule Ibuprofen 800 mg PO Q8 #30 tablet Referrals: ABRAN EDWARDS DO [Primary Care Provider] - Follow up as needed
== END 2018-05-07 06:58 | disposition home or self-care (01) ==
LOC: ER 03:24
PROC: 3E0T3BZ Introduction of Anesthetic Agent into Peripheral Nerves and Plexi, Percutaneous Approach (ICD-10-PCS; principal; 2018-05-07)
DX: K08.89 Other specified disorders of teeth and supporting structures (principal)
CPT/HCPCS: 99282; 64400; J3490 ×2

== ENCOUNTER → 2018-09-22 | Outpatient (CLI) | payer MEDICAID ==
--- NOTE | 2018-09-22 16:24 | RADIOLOGY REPORT (SQ) ---
EXAM DESCRIPTION: U/S NA7DEVS TRNABD 1GES W/ODOP COMPLETED DATE/TIME: 09/22/2018 4:09 pm TECHNIQUE: Static and Dynamic grayscale imaging performed of gravid uterus using transabdominal appr oac. Additional selected color Doppler and spectral images recorded. All stored on PACS. CLINICAL DATES: Unknown. LIMITATIONS: None. FINDINGS: FETUSES SEEN:1 EGA: 18 weeks 4 days Calculated using BPD,FL,HC,AC documented on images. No discrepancy with clinica l dates. MANASA: 02/19/2019 EFW: 225+/- 33 grams PERCENTILE: Not calculated. LVP: 3.5 cm. PLACENTA: Posterior. Grade 1. PRESENTATION: Breech. ANATOMY: HEART RATE: 141 beats per minute. FOUR CHAMBER HEART: Visualized. THREE VESSEL CORD: Yes. CORD INSERTION: Visualized. KIDNEYS AND BLADDER: Visualized. Appear normal. STOMACH: Visualized. Appears normal. SPINE: Normal as visualized. BRAIN AND LATERAL VENTRICLES: Visualized. Appear normal. OTHER: No other significant finding. MATERNAL ADNEXA: Maternal ovaries not visualized. CERVICAL LENGTH: 4.7 cm. Closed. OTHER: No other significant finding. IMPRESSION: LIVING INTRAUTERINE . ESTIMATED GESTATIONAL AGE 18 weeks 4 days. NO VISUALIZED ANOMALIES. Trimester of : Second trimester - 13 weeks 1 day to 27 weeks 6 days. TECHNICAL DOCUMENTATION: JOB ID: [id number] 2003 [employer]- All Rights Reserved REASON FOR STUDY: Z34.81 ENCOUNTER FOR SUPRVSN OF NORMAL , FIRST TRIMESTER Z34.81 ENCOUNTE R FOR SUPRVSN OF NORMAL , FIRST TRIM Z34.81 ENCOUNTER FOR SUPRVSN OF NORMAL , FIRST TRIMESTER Z34.81 ENCOUNTER FOR SUPRVSN OF NO RMAL , FIRST TRIM LMP unknown COMPARISON: None. Reading location - IP/workstation name: [email or web address]
== END ==
LOC: RAD 16:41
PROVIDERS: ATTEND Nurse Practitioner
DX: Z34.81 Encounter for supervision of other normal pregnancy, first trimester (principal)
CPT/HCPCS: 76801

== ENCOUNTER 2019-01-09 10:11 | Outpatient (CLI) | payer MEDICAID ==
[2019-01-09] MEDS ORDERED: RINGERS SOLUTION,LACTATED 1,000 ML IV ONE (10:25)
[2019-01-09] MEDS ORDERED: ONDANSETRON HCL INJ/PF 4 MG/2 ML SDV IV ONE (10:25)
[2019-01-09] MEDS ORDERED: ONDANSETRON HCL INJ/PF 4 MG/2 ML SDV ONE (10:28)
[2019-01-09 11:43] LABS: APPEARANCE,URINE CLEAR; BILIRUBIN,URINE NEGATIVE (NEGATIVE); COLOR,URINE YELLOW; GLUCOSE, URINE NEGATIVE (NEGATIVE); KETONES,URINE TRACE mg/dL (NEGATIVE); LEUKOCYTE ESTERASE,URINE SMALL (NEGATIVE); NITRITE,URINE NEGATIVE (NEGATIVE); PROTEIN,URINE NEGATIVE (NEGATIVE); URINE SPECIFIC GRAVITY 1.009; UROBILINOGEN,URINE NEGATIVE mg/dL (<2.0)
--- NOTE | 2019-01-09 12:04 | Non Stress Test Report ---
Non Stress Test Datetime Report Generated by CPN: 01/09/2019 12:04 DEMOGRAPHIC EGA NST: 34.1 INDICATION Indication for Study: Substance Abuse Indication for Study (NST) Other: LC MONITORING Monitor Explained: Monitor Explained; Test Explained; Patient Verbalized Understanding Time on Monitor: 01/09/2019 10:21 Time off Monitor: 01/09/2019 12:00 NST Duration: 99 NST INTERVENTIONS NST Interventions: PO Hydration; IV Fluids Physician Notified NST: Zeina Nuñez CNM on unit viewed strip BABY A: [id number] BABY A Movement : Present Contraction Frequency : Irregular FHR Baseline : 130 Accelerations : 15X15 Decelerations : None Variability : Moderate 6-25bpm NST Review: Meets Criteria for Reactive NST NST Review and Verified By : ZENAIDA TAFOYA Results: Reactive NST REPORT Report Trigger: Send Report
[2019-01-09 12:37] LABS: URINE AMPHETAMINES SCREEN NEGATIVE; URINE BARBITURATES SCREEN NEGATIVE; URINE BENZODIAZEPINES SCREEN NEGATIVE; URINE PHENCYCLIDINE SCREEN NEGATIVE
[2019-01-09 12:46] LABS: URINE COCAINE SCREEN UNCONFIRMED POSITIVE; URINE MARIJUANA (THC) SCREEN UNCONFIRMED POSITIVE; URINE METHADONE SCREEN UNCONFIRMED POSITIVE
== END 2019-01-09 12:45 | disposition home or self-care (01) ==
LOC: LC 10:11
PROVIDERS: ATTEND Obstetrics & Gynecology Gynecology
PROC: 4A1HXCZ Monitoring of Products of Conception, Cardiac Rate, External Approach (ICD-10-PCS; principal; 2019-01-09)
DX: O47.03 False labor before 37 completed weeks of gestation, third trimester (principal); O99.283 Endocrine, nutritional and metabolic diseases complicating pregnancy, third trimester; E86.0 Dehydration; O99.323 Drug use complicating pregnancy, third trimester; F19.10 Other psychoactive substance abuse, uncomplicated; Z3A.34 34 weeks gestation of pregnancy
CPT/HCPCS: 59025; 36415; 81005; 80307; 80353; G0480 ×3; J2405; 80349

== ENCOUNTER 2019-01-30 01:59 | Inpatient (IN) | payer MEDICAID ==
[2019-01-30] MEDS ORDERED: OXYTOCIN/NORMAL SALINE 20 UNIT/1,000 ML RTUINJ ONE (02:05)
--- NOTE | 2019-01-30 02:27 | Admission Physical ---
Datetime Report Generated by CPN: 01/30/2019 02:26 CURRENT ADMISSION Chief Complaint: Uterine Contractions; Suspected Ruptured Membranes Indication for Induction: Not Applicable Admit Impression : Term, Intrauterine ; Active Labor; Ruptured Membranes Admit Plan: Admit to Unit; Initiate Labor Protocol ALLERGIES Medication Allergies: Yes Medication Allergies: Penicillin V (07/10/2017) Latex: No Latex Allergies Food Allergies: No known allergies Environmental Allergies: No known allergies OBSTETRICAL HISTORY EDC: 02/19/2019 00:00 : 5 Para: 4 Term: 3 : 1 SAB: 0 IAB: 0 Ectopic: 0 Livin (Annotations: Data stored by CPN on behalf of user) Cesareans: 0 VBACs: 0 Multiple Births: 0 SEE RECORDS Alcohol: No Marijuana : No Cocaine: No Illicit Drug Comments: on methadone Cigarettes: Current Everyday Smoker. [id number] PHYSICAL EXAM General: Normal HEENT: Normal Neurologic: Normal Thyroid: Normal Heart: Normal Lungs: Normal Breast: Normal Back: Normal Abdomen: Normal Genitourinary Exam: Normal Extremities: Normal DTRs: Normal Pelvic Type: Adequate Vital Signs: Reviewed; Within Normal Limits VAGINAL EXAM Dilatation: 10 Effacement: 100 Station: 2 Contraction Comments: q 2 MEMBRANES Membranes: Ruptured FETUS A EGA: 37.1 Monitoring: External US FHR Comments: no toco Admit Comment: This 32 yo states that she had rupture of membranes at 2000. Presented to L_D at 0200. Uses Methdone and Zolof daily. PLANS FOR LABOR AND DELIVERY Labor and Delivery: None Pain Management: Natural Feeding Preference: Formula Circumcision: Yes INFORMED CONSENT Signature: with User ID: [email or web address]
[2019-01-30] MEDS ORDERED: MEASLES,MUMPS&RUBELLA VACC/PF 0.5 ML VIAL SUBCUT PRN (02:38)
[2019-01-30] MEDS ORDERED: DIPH/PERTUSS(ACELL)/TETANUS VAC/PF 0.5 ML SYR (>=10YO) IM PRN (02:38)
[2019-01-30] MEDS ORDERED: OXYTOCIN/NORMAL SALINE 20 UNIT/1,000 ML RTUINJ IV PRN (02:38)
[2019-01-30] MEDS ORDERED: BENZOCAINE/MENTHOL AEROSOL SPRAY 56 ML TOP PRN (02:38)
[2019-01-30] MEDS ORDERED: ZOLPIDEM TARTRATE 5 MG TABLET PO PRN (02:38)
[2019-01-30] MEDS ORDERED: DIBUCAINE 1% OINTMENT 56 GM TP PRN (02:38)
[2019-01-30] MEDS ORDERED: RINGERS SOLUTION,LACTATED 1,000 ML IV PRN (03:08)
[2019-01-30 03:34] LABS: ABSOLUTE BASOPHILS # (AUTO) 0.1 10^3/uL (0.0-0.2); ABSOLUTE MONOCYTES (AUTO) 0.6 10^3/uL (0.1-1.4); ABSOLUTE NEUT (AUTO) 13.4 10^3/uL (1.7-8.2); BASOPHILS % (AUTO) 0.5 % (0-2); HEMATOCRIT 36.2 % (36.0-47.0); HEMOGLOBIN 12.4 g/dL (12.0-15.5); LYMPHOCYTES % (AUTO) 12.3 % (13-45); MEAN CORPUSCULAR HEMOGLOBIN 29.8 pg (27.0-33.4); MEAN CORPUSCULAR HGB CONC 34.3 g/dL (32.0-36.0); MEAN CORPUSCULAR VOLUME 87 fl (80-97); MONOCYTES % (AUTO) 3.7 % (3-13); PLATELET COUNT 281 10^3/uL (150-450); RED BLOOD COUNT 4.17 10^6/uL (3.72-5.28); SEGMENTED NEUTROPHILS % (AUTO) 83.5 % (42-78); TOTAL CELLS COUNTED % (AUTO) 100 %; WHITE BLOOD COUNT 16.1 10^3/uL (4.0-10.5)
[2019-01-30] MEDS ORDERED: IBUPROFEN 800 MG TABLET ONE (03:57)
[2019-01-30 04:55] LABS: URINE AMPHETAMINES SCREEN NEGATIVE; URINE BARBITURATES SCREEN NEGATIVE; URINE BENZODIAZEPINES SCREEN NEGATIVE; URINE PHENCYCLIDINE SCREEN NEGATIVE
[2019-01-30 05:08] LABS: URINE COCAINE SCREEN UNCONFIRMED POSITIVE; URINE MARIJUANA (THC) SCREEN UNCONFIRMED POSITIVE; URINE METHADONE SCREEN UNCONFIRMED POSITIVE
[2019-01-30] MEDS: IBUPROFEN 800 MG TABLET PO SCH ×3 (05:22→21:55)
[2019-01-30] MEDS ORDERED: METHADONE HCL 10 MG TABLET PO ONE (09:00)
[2019-01-30] MEDS: DOCUSATE SODIUM 100 MG CAPSULE PO SCH ×2 (09:09→17:07)
[2019-01-30] MEDS: FERROUS SULFATE 325 MG TABLET PO SCH ×2 (09:09→17:06)
[2019-01-30] MEDS: SENNOSIDES/DOCUSATE 8.6-50 MG 1 EACH TABLET PO SCH (09:10)
[2019-01-30] MEDS: PRENATAL VITAMIN W DHA CAPSULE PO SCH (09:10)
[2019-01-30] MEDS: SERTRALINE HCL 50 MG TABLET PO SCH (09:10)
[2019-01-30] MEDS ORDERED: SERTRALINE HCL 50 MG TABLET PO SCH (10:00)
--- NOTE | 2019-01-30 11:20 | PDOC PROGRESS REPORT ---
Subjective-OB Progress Note for:: 01/30/19 Subjective: Doing well, no c/o, family at BS, baby in room, bottle feeding Physical Exam (OB) Vital Signs: Temp Pulse Resp BP Pulse Ox 98.1 F 72 15 117/62 99 01/30/19 08:14 01/30/19 08:14 01/30/19 08:14 01/30/19 08:14 01/30/19 08:14 Intake & Output 01/29/19 01/30/19 01/31/19 06:59 06:59 06:59 Weight 76.204 kg - Lochia Lochia Amount: Scant < 10 ml Lochia Color: Rubra/Red - Abdomen Description: Soft, Round Hernia Present: No Fundal Description: Firm, Midline Fundal Height: u/u - u/2 Objective-Diagnostic Laboratory: 01/30/19 03:19 01/30/19 01/30/19 03:19 03:19 WBC 16.1 H RBC 4.17 Hgb 12.4 Hct 36.2 MCV 87 MCH 29.8 MCHC 34.3 RDW 14.0 Plt Count 281 Seg Neutrophils % 83.5 H Lymphocytes % 12.3 L Monocytes % 3.7 Eosinophils % 0.0 Basophils % 0.5 Absolute Neutrophils 13.4 H Absolute Lymphocytes 2.0 Absolute Monocytes 0.6 Absolute Eosinophils 0.0 Absolute Basophils 0.1 Blood Type O POSITIVE Antibody Screen NEGATIVE Assessment and Plan(PN) - Assessment and Plan (1) Vaginal delivery Is this a current diagnosis for this admission?: Yes (2) labor in second trimester with delivery in third trimester Qualifiers: Fetus number: single or unspecified fetus Is this a current diagnosis for this admission?: Yes (3) Drug abuse Is this a current diagnosis for this admission?: Yes - Time Spent with Patient Time with patient: Less than 15 minutes Medications reviewed and adjusted accordingly: Yes - Disposition Anticipated Discharge: Home Within: within 24 hours
[2019-01-31] MEDS ORDERED: OXYTOCIN 10 UNIT/ML VIAL ONE (03:27)
[2019-01-31] MEDS: IBUPROFEN 800 MG TABLET PO SCH ×3 (06:36→22:00)
[2019-01-31 07:15] LABS: HEMATOCRIT 33.8 % (36.0-47.0); HEMOGLOBIN 11.5 g/dL (12.0-15.5); MEAN CORPUSCULAR HEMOGLOBIN 29.7 pg (27.0-33.4); MEAN CORPUSCULAR VOLUME 88 fl (80-97); PLATELET COUNT 281 10^3/uL (150-450); RED BLOOD COUNT 3.86 10^6/uL (3.72-5.28); RED CELL DISTRIBUTION WIDTH 13.9 % (11.5-14.0); WHITE BLOOD COUNT 10.2 10^3/uL (4.0-10.5)
[2019-01-31] MEDS ORDERED: METHADONE HCL 10 MG TABLET ONE (09:40)
[2019-01-31] MEDS: PRENATAL VITAMIN W DHA CAPSULE PO SCH (09:45)
[2019-01-31] MEDS: SERTRALINE HCL 50 MG TABLET PO SCH (09:45)
[2019-01-31] MEDS: DOCUSATE SODIUM 100 MG CAPSULE PO SCH ×2 (09:46→17:27)
[2019-01-31] MEDS: SENNOSIDES/DOCUSATE 8.6-50 MG 1 EACH TABLET PO SCH (09:46)
[2019-01-31] MEDS: FERROUS SULFATE 325 MG TABLET PO SCH ×2 (09:46→17:27)
--- NOTE | 2019-01-31 10:03 | Delivery Summary ---
Del Sum A-C Datetime Report Generated by CPN: 01/31/2019 10:02 DELIVERY PERSONNEL DELIVERY PERSONNEL: [id number] Delivery Doctor:: Natalia Luo MD Labor and Delivery Nurse:: Kymberly Antoine RNlumber material handler Nurse:: Kristie Espinoza RN Operations Trainer:: Kristie Calvo RN Nursery Nurse:: Constance Dimas RN MATERNAL INFORMATION Delivery Anesthesia: None Medications After Delivery: Pitocin 10 Units IM; Pitocin Drip 20 Units/1000ml NSS Estimated Blood Loss (ml): 50 ml Maternal Complications: Precipitous Labor (<3hrs) Provider Comments: of a viable male at 0201 w/ an OA presentation; APGARS 9, 9 ; no lacs LABOR SUMMARY EDC: 02/19/2019 00:00 No. Babies in Womb: 1 Attempted: No Labor Anesthesia: None LABOR INFORMATION Reason for Induction: Not Applicable Complete Dilatation: 01/30/2019 01:50 Oxytocin: N/A Group B Beta Strep: Negative Antibiotics # of Doses: 0 Antibiotics Time of Last Dose: N/A Name of Antibiotic Given: N/A Steroids Given: None Reason Steroids Not Administered: Not Applicable MEMBRANES Membranes Rupture Method: Spontaneous Rupture of Membranes: 01/29/2019 18:00 Length of Rupture (hr): 8.02 Amniotic Fluid Color: Clear Amniotic Fluid Amount: Small Amniotic Fluid Odor: None STAGES OF LABOR Stage 2 hr: 0 Stage 2 min: 11 Stage 3 hr: 0 Stage 3 min: 2 VAGINAL DELIVERY Episiotomy: None Laceration #1: None Laceration Extension #1: N/A Laceration Repair: Not Applicable Initial Vag Sponge Count: 0 Final Vag Sponge Count: 0 Initial Vag Sharps Count: 0 Final Vag Sharps Count: 0 Sponge Count Correct: Yes Sharps Count Correct: Yes CSECTION DELIVERY Primary Indication: N/A Secondary Indication: N/A CSection Incidence: N/A Labor: N/A Elective: N/A CSection Incision: N/A BABY A INFORMATION Delivery Date/Time: 01/30/2019 02:01 Method of Delivery: Vaginal Method of Delivery: Vaginal Born in Route : No : N/A Forceps: N/A Vacuum Extraction: N/A Shoulder Dystocia : No PRESENTATION/POSITION BABY A Presentation: Cephalic Cephalic Presentation: N/A Vertex Position: Left Occipital Anterior Breech Presentation: N/A PLACENTA INFORMATION BABY A Placenta Delivery Time : 01/30/2019 02:03 Placenta Method of Delivery: Spontaneous Placenta Status: Delivered SCORES BABY A Heart Rate 1 min: >100 bpm Resp Effort 1 min: Good Cry Reflex Irritability 1 min: Cough or Sneeze or Pulls Away Muscle Tone 1 min: Active Motion Color 1 min: Body [place], Extremities Blue Resuscitation Effort 1 min: Tactile Stimulation SCORE 1 MIN: 9 Heart Rate 5 min: >100 bpm Resp Effort 5 min: Good Cry Reflex Irritability 5 min: Cough or Sneeze or Pulls Away Muscle Tone 5 min: Active Motion Color 5 min: Body [place], Extremities Blue Resuscitation Effort 5 min: N/A SCORE 5 MIN: 9 INFORMATION BABY A Gestational Age at Delivery: 37.1 Gestational Status: Early Term- 37- 38.6 Weeks Infant Outcome : Liveborn Condition : Stable Sex: Male Infant Sex: Male IDENTIFICATION BABY A Verification Date/Time: 01/30/2019 02:36 ID Band Number: [id number] Mother's Name Verified: Yes Infant RN Verifying Infant: A. Marionyak, RN Additional Verifying Personnel: [employer], RN WEIGHT/LENGTH BABY A Birthweight (gm): 2274 Weight (lb): 5 Infant Weight (oz): 0 Length (in): 17.25 Infant Length (cm): 43.82 CORD INFORMATION BABY A No. Cord Vessels: 3 Nuchal Cord : N/A Cord Blood Taken: Yes-For Eval (Mom's Blood Type - or O+) Infant Suction: Mouth; Nose ASSESSMENT BABY A Skin to Skin: No Skin to Skin Time (min): 0 BABY B INFORMATION : N/A SIGNATURES Signature: with User ID: [email or web address]
[2019-01-31] MEDS ORDERED: METHADONE HCL 10 MG TABLET PO ONE (11:30)
--- NOTE | 2019-01-31 11:52 | PDOC PROGRESS REPORT ---
Subjective-OB Progress Note for:: 01/31/19 Subjective: 33yo G5 now P5 s/p ppd 1. Ambulating and voiding without difficulty. Reports pain well controlled with medication. No concerns at this time. Physical Exam (OB) Vital Signs: Temp Pulse Resp BP Pulse Ox 97.7 F 62 16 120/73 96 01/31/19 07:27 01/31/19 07:27 01/31/19 07:27 01/31/19 07:27 01/31/19 07:27 Intake & Output 01/30/19 01/31/19 02/01/19 06:59 06:59 06:59 Intake Total 750 Balance 750 Weight 76.204 kg - General General Appearance: Appears well In distress: None - PIH/Pre-Eclampsia Headache: Absent Epigastric Pain: No Visual Changes: No - Episiotomy/Laceration Site Condition: N/A - Lochia Lochia Amount: Scant < 10 ml Lochia Color: Rubra/Red - Abdomen Description: Soft, Round Hernia Present: No Fundal Description: Firm, Midline Fundal Height: u/u - u/2 - Respiratory Respiratory Status: No respiratory distress - Extremities Upper extremity: Normal inspection Lower extremities: Normal inspection - Neurological Cognition: Normal Orientation: AAOx4 - Psychological Associated symptoms: Normal affect, Normal mood Objective-Diagnostic Laboratory: 01/31/19 06:50 01/31/19 06:50 WBC 10.2 RBC 3.86 Hgb 11.5 L Hct 33.8 L MCV 88 MCH 29.7 MCHC 34.0 RDW 13.9 Plt Count 281 Assessment and Plan(PN) - Assessment and Plan (1) Tobacco smoking affecting Qualifiers: Trimester: unspecified trimester Qualified Code(s): O99.330 - Smoking (tobacco) complicating , unspecified trimester Is this a current diagnosis for this admission?: Yes Plan: cessation encouraged (2) Vaginal delivery Is this a current diagnosis for this admission?: Yes Plan: Routine pp care (3) Drug abuse Is this a current diagnosis for this admission?: Yes Plan: pt currently receiving treatment via outpatient services - Time Spent with Patient Time with patient: Less than 15 minutes Smoking Education Provided: Over 3 minutes Medications reviewed and adjusted accordingly: Yes - Disposition Anticipated Discharge: Home Within: within 24 hours
[2019-02-01 08:35] VITALS: BP 110/68
--- NOTE | 2019-02-01 09:06 | PDOC DISCHARGE SUMMARY ---
Final Diagnosis Discharge Date: 02/01/19 - Final Diagnosis (1) Tobacco smoking affecting Is this a current diagnosis for this admission?: Yes (2) Vaginal delivery Is this a current diagnosis for this admission?: Yes Discharge Data - Discharge Medication Home Medications: Sertraline HCl [Zoloft 50 mg Tablet] 100 mg PO QHS 07/24/16 Lurasidone HCl [Latuda] 80 mg PO DAILY 05/23/17 Pnv,Calcium 72/Iron/Folic Acid [Pnv Plus Multivit Tab] 1 tab PO DAILY 05/23/17 Methadone HCl [Methadose] 100 mg PO DAILY 01/09/19 Reason(s) for Admission: Onset of Labor Procedures: NST Intrapartum Procedure(s): Spontaneous Vaginal Delivery - Diagnosis Test Laboratory: Temp Pulse Resp BP Pulse Ox 98.0 F 57 L 15 110/68 96 02/01/19 07:43 02/01/19 07:43 02/01/19 07:43 02/01/19 07:43 02/01/19 07:43 01/30/19 01/30/19 01/31/19 03:19 03:45 06:50 RBC 4.17 3.86 Hgb 12.4 11.5 L Hct 36.2 33.8 L Urine Opiates Screen NEGATIVE - Discharge information/Instructions Discharge Activity: Balance Activity w/Rest, Pelvic Rest Discharge Diet: Regular Disposition: HOME, SELF-CARE Follow up with: [facility] in: 4, Weeks
[2019-02-01] MEDS ORDERED: METHADONE HCL 10 MG TABLET PO ONE (10:00)
[2019-02-01] MEDS: FERROUS SULFATE 325 MG TABLET PO SCH (10:06)
[2019-02-01] MEDS: DOCUSATE SODIUM 100 MG CAPSULE PO SCH (10:06)
[2019-02-01] MEDS: PRENATAL VITAMIN W DHA CAPSULE PO SCH (10:06)
[2019-02-01] MEDS: IBUPROFEN 800 MG TABLET PO SCH (10:07)
[2019-02-01] MEDS: SENNOSIDES/DOCUSATE 8.6-50 MG 1 EACH TABLET PO SCH (10:07)
[2019-02-01] MEDS: SERTRALINE HCL 50 MG TABLET PO SCH (10:07)
== END 2019-02-01 14:00 | disposition home or self-care (01) | DRG 807 ==
LOC: LC 01:59 → LR 02:01 → 2S 04:22
PROVIDERS: ADMIT Obstetrics & Gynecology; ATTEND Obstetrics & Gynecology
PROC: 10E0XZZ Delivery of Products of Conception, External Approach (ICD-10-PCS; principal; 2019-01-30)
PROC: 3E0234Z Introduction of Serum, Toxoid and Vaccine into Muscle, Percutaneous Approach (ICD-10-PCS; 2019-02-01)
DX: O99.324 Drug use complicating childbirth (principal); Z37.0 Single live birth; F11.10 Opioid abuse, uncomplicated; O62.3 Precipitate labor; O99.334 Smoking (tobacco) complicating childbirth; F17.200 Nicotine dependence, unspecified, uncomplicated; Z3A.37 37 weeks gestation of pregnancy; Z88.0 Allergy status to penicillin; Z23 Encounter for immunization
CPT/HCPCS: 36415; 80307; 80349; 80353; 85025; 85027; 86592; 86850; 86900; 86901; 88307; 90715; 94760; G0480; J2590; J3490

== ENCOUNTER 2019-06-20 00:44 | Emergency (ER) | payer MEDICAID ==
[2019-06-20 00:52] VITALS: BP 145/99
== END 2019-06-20 02:30 | disposition left against medical advice (07) ==
LOC: ER 00:44
DX: Z53.21 Procedure and treatment not carried out due to patient leaving prior to being seen by health care provider (principal)

== ENCOUNTER → 2020-07-07 | Outpatient (CLI) | payer MEDICAID ==
[2020-07-07 12:54] VITALS: BP 111/58
--- NOTE | 2020-07-07 12:54 | ER [facility] ASSESSMENT REPORT ---
Intake - In the Last 14 days Have you traveled outside [place]?: No Have you been in close contact with someone CONFIRMED: No Worked in Healthcare?: No - Symptoms Subjective Fever([place] feverish): No Chills: Yes Muscule Aches: Yes Runny Nose: No Sore Throat: Yes Cough (New or worsening chronic cough): Yes Shortness of breath: Yes Nausea or Vomiting: Yes Headache: Yes Abdominal Pain: No Diarrhea(3 or more loose stools in last 24 hours): No - Do you have any of the following Chronic lung disease: Asthma or emphysema or COPD: No Cystic Fibrosis: No Diabetes: No High Blood Pressure: No Cardiovascular Disease: No Chronic Kidney Disease: No Chronic Liver Disease: No Chronic blood disorder like Sickle Cell Disease: No Weak immune system due to disease or medication: No Neurologic condition that limits movement: No Developmental delay - Moderate to Severe: No Recent (within past 2 weeks) or current : No Morbid Obesity (>100 pounds over ideal weight): No - Objective Temperature: 98.2 F Pulse Rate: 76 Respiratory Rate: 16 Blood Pressure: 111/58 O2 Sat by Pulse Oximetry: 97 Objective: Given above, testing performed: flu, strep, covid Disposition: Home; Selfcare General - General Stated Complaint: sore throat, cough, fatigue, FREEMAN Time Seen by Provider: 07/07/20 12:10 Mode of Arrival: Ambulatory Information source: Patient - HPI Notes: 35-year-old female presents [facility] clinic for COVID-19 testing. Patient reports no known exposure, positive individual. Patient currently symptomatic with onset of symptoms 06/29/2020. She is complaining of chills, myalgia, sore throat, occasional dry cough, occasional shortness of breath only when laying flat, nausea, and headache. Denies any fever, rhinorrhea, abdominal pain, or diarrhea. - Related Data Allergies/Adverse Reactions: penicillin V [Penicillin V] Allergy (Verified 06/20/19 00:46) Past Medical History - General Information source: Patient - Social History Smoking Status: Current Every Day Smoker Cigarette use (# per day): Yes - 10 Family History: Reviewed & Not Pertinent - Past Medical History Cardiac Medical History: Reports: None Pulmonary Medical History: Reports: Hx Bronchitis EENT Medical History: Reports: None Neurological Medical History: Reports: None Endocrine Medical History: Reports: None Renal/ Medical History: Reports: None. Denies: Hx Peritoneal Dialysis Malignancy Medical History: Reports: None GI Medical History: Reports: None Musculoskeletal Medical History: Reports None Skin Medical History: Reports None Psychiatric Medical History: Reports: Hx Anxiety Traumatic Medical History: Reports: None Infectious Medical History: Reports: None Past Surgical History: Reports: None Physical Exam - General General appearance: Appears well, Alert In distress: None Notes: PHYSICAL EXAMINATION: GENERAL: Well-appearing and in no acute distress. HEAD: Atraumatic, normocephalic. EYES: sclera anicteric, conjunctiva are normal. ENT: nares patent. Moist mucous membranes. NECK: Normal range of motion, supple without lymphadenopathy. LUNGS: No increased work of breathing. Lung sounds CTAB and equal. No wheezes rales or rhonchi. HEART: Regular rate and rhythm without murmurs. ABDOMEN: Soft, nontender, normal bowel sounds, no guarding. EXTREMITIES: Normal range of motion, no pitting edema. No cyanosis. NEUROLOGICAL: A&O x 3. Normal speech. PSYCH: Normal mood, normal affect. SKIN: Warm, Dry, normal turgor, no rashes or lesions noted Diagnostic Results Laboratory Results: rapid strep, flu negative. throat culture, covid pending Patient Education/Counseling Counseling/Education: Patient presents with symptoms associated with possible Covid 19 infection. Pat ient does not have emergency worrying symptoms such as difficulty breathing, shortness of breath, chest pain, pressure, confusion or cyanosis. Patient appears suitable for discharge as vital signs are stable and patient is nontoxic in appearance. Good return precautions have been discussed with patient, patient verbalized understanding and is agreeable with discharge plan of care at this time. Guidance for worsening S/SX: As a person under investigation for Covid 19, the [place] department of Health and Human Services, division of public health advises you to adhere to the following guidance until your test results are reported to you. If your test result is positive, you will receive additional information from your provider and your local health department at that time. Remain at home until you are cleared by the health provider or public health authorities. Keep a log of visitors to your home, notify any visitors to your home of your isolation status. If you plan to move to a new address or leave the [facility], notify the local health department in your County. Call your doctor or seek care if you have an urgent medical need. Before see [facility], call ahead to get instructions from the provider before arriving at the medical office clinic or hospital. Notify them that you are being tested for the virus that causes Covid 19 so that arrangements can be made, as necessary, to prevent transmission to others in the healthcare setting. Next, notify the local health department in your county. If a medical emergency arises and you need to call 911, inform the first responders that you are being tested for the virus that causes Covid 19. Next, notify the local health department in your county. [facility] Discharge - Discharge Clinical Impression: Encounter for screening laboratory testing for COVID-19 virus Upper respiratory infection Qualifiers: URI type: unspecified URI Qualified Code(s): J06.9 - Acute upper respiratory infection, unspecified Condition: Good Disposition: Home; Selfcare
[2020-07-07 13:54] LABS: A TYPE INFLUENZA AG NEGATIVE (NEGATIVE); B INFLUENZA AG NEGATIVE (NEGATIVE)
== END ==
LOC: RDC 11:51
PROVIDERS: ATTEND Registered Nurse
DX: J06.9 Acute upper respiratory infection, unspecified (principal); Z20.828 Contact with and (suspected) exposure to other viral communicable diseases; R68.83 Chills (without fever); J02.9 Acute pharyngitis, unspecified; R05 Cough; M79.10 Myalgia, unspecified site; R06.02 Shortness of breath; R11.0 Nausea; R51 Headache; R53.83 Other fatigue; Z88.0 Allergy status to penicillin
CPT/HCPCS: 87070; 87880; 87635; 87804; C9803; 87077; 99201; 99211